=== PATIENT | female | born 1990 | race Caucasian/White ===

== ENCOUNTER 2023-11-17 16:03 | Inpatient (IN) | payer OTHER ==
[~2023-11-17] VITALS: Ht 165.1 cm; Wt 66.1 kg
[2023-11-17] MEDS ORDERED: METH4PACK PO (16:20)
[2023-11-17 22:04] LABS: BASO % 0.2 % (0.0-1.0); EOS # 0.5 10^3/uL (0.0-0.5); EOS % 4.6 % (0.0-3.0); HEMOGLOBIN 12.2 g/dl (12.0-15.5); LYMPH # 0.6 10^3/uL (1.5-5.0); LYMPH % 5.3 % (24.0-44.0); MEAN CORPUSCULAR VOLUME 91.1 fl (80.0-96.0); MONO # 0.5 10^3/uL (0.0-0.8); MONO % 4.4 % (2.0-8.0); NEUTROPHILS % 84.7 % (36.0-66.0); PLATELET COUNT, AUTOMATED 210 10^3/uL (150-450); RED BLOOD COUNT 4.06 10^6/uL (4.00-5.40); WHITE BLOOD COUNT 10.7 10^3/uL (4.0-10.0)
[2023-11-17 22:13] LABS: ERYTHROCYTE SEDIMENTATION RATE 5 mm/hr (0-20)
[2023-11-17 22:15] LABS: INR 1.14; PARTIAL THROMBOPLASTIN TIME 27.4 SECONDS (24.8-34.2); PROTHROMBIN TIME 14.3 SECONDS (12.5-14.5)
[2023-11-17 22:32] LABS: ALBUMIN 3.6 G/DL (3.2-5.2); ALKALINE PHOSPHATASE 46 U/L (46-116); ALT/SGPT 23 U/L (7.0-40); AST/SGOT 13 U/L (<34); BILIRUBIN,DIRECT < 0.1 MG/DL (<0.4); BILIRUBIN,TOTAL 0.2 MG/DL (0.3-1.2); BLOOD UREA NITROGEN 12 MG/DL (9-23); CALCIUM LEVEL 7.9 MG/DL (8.5-10.1); CARBON DIOXIDE LEVEL 24 MMOL/L (20-31); CHLORIDE LEVEL 105 MMOL/L (98-107); CREATININE FOR GFR 1.03 MG/DL (0.55-1.30); GLOMERULAR FILTRATION RATE > 60.0 (>60); GLUCOSE, FASTING 99 MG/DL (60-100); POTASSIUM SERUM 3.4 MMOL/L (3.5-5.1); SODIUM LEVEL 134 MMOL/L (136-145); TOTAL PROTEIN 6.4 G/DL (5.7-8.2)
[2023-11-17] MEDS ORDERED: CYCL5TAB PO (23:18)
[2023-11-17] MEDS ORDERED: JUNE1TAB PO (23:18)
[2023-11-17] MEDS ORDERED: IBUP1TAB7 PO (23:18)
[2023-11-17] MEDS ORDERED: ACET-897 PO (23:18)
[2023-11-17] MEDS ORDERED: HOME MED LIST COMPLETE! XX SCH (23:20)
[2023-11-17] MEDS: ACETAMINOPHEN 325 MG TAB PO ONE (23:22)
[2023-11-17] MEDS: KETOROLAC 30 MG/ML 1ML VIAL IV ONE (23:22)
[2023-11-18] MEDS ORDERED: diphenhydrAMINE 50MG/ML VIAL IV SCH (00:35)
[2023-11-18] MEDS ORDERED: MOM 30ML SUSPENSION UDC PO PRN (00:35)
[2023-11-18] MEDS: NS 1,000 ML IV SCH (01:26)
[2023-11-18] MEDS: CETIRIZINE (ZyrTEC) 10 MG TAB PO SCH (01:26)
[2023-11-18] MEDS: MORPHINE 2 MG/ML 1ML VIAL IV PRN (01:27)
[2023-11-18] MEDS: diphenhydrAMINE 50MG/ML VIAL IV PRN (02:50)
[2023-11-18] MEDS: NS 1,000 ML IV ONE (03:30)
[2023-11-18] MEDS: ANUSOL HC CREAM 30GM TOP PRN (04:33)
[2023-11-18] MEDS: KETOROLAC 30 MG/ML 1ML VIAL IV PRN (07:10)
[2023-11-18] MEDS: ACETAMINOPHEN TAB 650MG DOSE (2X325MG) PO PRN (07:34)
[2023-11-18 08:28] VITALS: BP 115/59; TEMP 100.1; O2SAT 98
[2023-11-19 14:57] LABS: SSA SJOGRENS A <1.0 NEG AI (<1.0 NEG); SSB SJOGRENS B <1.0 NEG AI (<1.0 NEG)
== END 2023-11-18 08:30 | disposition short-term general hospital (02) | DRG 596 ==
LOC: M ED 16:03 → M ED INP 11-18 00:34
PROVIDERS: ADMIT Internal Medicine; ATTEND Internal Medicine
DX: L51.1 Stevens-Johnson syndrome (principal); Z88.2 Allergy status to sulfonamides; Z88.8 Allergy status to other drugs, medicaments and biological substances; T36.8X5A Adverse effect of other systemic antibiotics, initial encounter

== ENCOUNTER 2023-11-28 10:41 | Emergency (ER) | payer OTHER ==
[~2023-11-28] VITALS: Ht 165.1 cm; Wt 65.7 kg
[~2023-11-28 10:41] MED LIST: ACET-897 PO; CYCL5TAB PO; IBUP1TAB7 PO; JUNE1TAB PO; METH4PACK PO
[2023-11-28 11:59] LABS: BASO % 0.4 % (0.0-1.0); EOS % 0.4 % (0.0-3.0); HEMATOCRIT 44.9 % (36.0-47.0); HEMOGLOBIN 14.6 g/dl (12.0-15.5); LYMPH # 1.6 10^3/uL (1.5-5.0); LYMPH % 16.5 % (24.0-44.0); MEAN CORPUSCULAR HEMOGLOBIN 29.6 pg (27.0-33.0); MEAN CORPUSCULAR HGB CONC 32.5 g/dl (32.0-36.5); MEAN CORPUSCULAR VOLUME 90.9 fl (80.0-96.0); MONO # 0.3 10^3/uL (0.0-0.8); MONO % 3.3 % (2.0-8.0); NEUTROPHILS # 7.7 10^3/uL (1.5-8.5); NEUTROPHILS % 78.3 % (36.0-66.0); PLATELET COUNT, AUTOMATED 427 10^3/uL (150-450); RED BLOOD COUNT 4.94 10^6/uL (4.00-5.40); WHITE BLOOD COUNT 9.8 10^3/uL (4.0-10.0)
[2023-11-28 12:16] LABS: BLOOD UREA NITROGEN 13 MG/DL (9-23); CALCIUM LEVEL 9.7 MG/DL (8.5-10.1); CARBON DIOXIDE LEVEL 26 MMOL/L (20-31); CHLORIDE LEVEL 106 MMOL/L (98-107); CREATININE FOR GFR 0.67 MG/DL (0.55-1.30); GLOMERULAR FILTRATION RATE > 60.0 (>60); GLUCOSE, FASTING 109 MG/DL (60-100); POTASSIUM SERUM 4.1 MMOL/L (3.5-5.1); SODIUM LEVEL 138 MMOL/L (136-145)
[2023-11-28 12:50] LABS: ALBUMIN 4.5 G/DL (3.2-5.2); ALKALINE PHOSPHATASE 67 U/L (46-116); ALT/SGPT 106 U/L (7.0-40); AST/SGOT 42 U/L (<34); BILIRUBIN,DIRECT 0.1 MG/DL (<0.4); BILIRUBIN,TOTAL 0.4 MG/DL (0.3-1.2); CK-MB VALUE MASS < 1.0 NG/ML (<3.6); MAGNESIUM LEVEL 2.2 MG/DL (1.8-2.4); PHOSPHORUS LEVEL 1.8 MG/DL (2.5-4.9); TOTAL PROTEIN 8.2 G/DL (5.7-8.2)
[2023-11-28 12:52] LABS: FREE T4 1.43 NG/DL (0.89-1.76); THYROID STIMULATING HORMONE 0.712 uIU/ML (0.55-4.78)
[2023-11-28 12:57] LABS: CPK CREATINE PHOSPHOKINASE 17 U/L (34-145); MB/CK RELATIVE INDEX 5.88 (< OR =4)
[2023-11-28] MEDS ORDERED: ISOVUE-370 76% 100ML VIAL As Ordered ONE (13:10)
[2023-11-28 14:10] LABS: CPK CREATINE PHOSPHOKINASE < 15 U/L (34-145)
[2023-11-28 14:11] LABS: CK-MB VALUE MASS < 1.0 NG/ML (<3.6)
[2023-11-28] MEDS: NEUTRA-PHOS 1.5 GM PACKET PO ONE (14:24)
[2023-11-28 15:30] VITALS: BP 128/68; TEMP 97.7; O2SAT 98
== END 2023-11-28 15:42 | disposition home or self-care (01) ==
LOC: M ED 10:41
DX: R20.2 Paresthesia of skin (principal); Z88.1 Allergy status to other antibiotic agents; Z88.2 Allergy status to sulfonamides; Z88.8 Allergy status to other drugs, medicaments and biological substances
CPT/HCPCS: 36415; 70450; 71045; 75635; 80048; 80076; 82550; 82553; 83605; 83735; 84100; 84439; 84443; 84484; 85025; 85379; 93005; 93041; 93970; 94760; 99285; Q9967

== ENCOUNTER → 2023-12-11 | Outpatient (CLI) | payer OTHER ==
[~2023-12-11] MED LIST changes: +PROHANCE 279.3MG/ML 15ML VIAL ONE
== END ==
LOC: M PLAIMG 08:14
PROVIDERS: ATTEND Nurse Practitioner Family
DX: R93.2 Abnormal findings on diagnostic imaging of liver and biliary tract (principal)
CPT/HCPCS: 74183; A9576

== ENCOUNTER 2024-04-13 11:22 | Emergency (ER) | payer OTHER ==
[~2024-04-13] VITALS: Ht 165.1 cm; Wt 69.3 kg
[~2024-04-13 11:22] MED LIST changes: -CYCL5TAB PO; +CYCL5TAB4 PO; -PROHANCE 279.3MG/ML 15ML VIAL ONE
[2024-04-13 11:24] VITALS: TEMP 97.3
[2024-04-13] MEDS ORDERED: RIZA5TAB52 (11:30)
[2024-04-13] MEDS ORDERED: OMEP40CA5 (11:30)
[2024-04-13] MEDS ORDERED: EPIN0.3I11 (11:30)
[2024-04-13] MEDS ORDERED: BENZ200C70 (11:30)
[2024-04-13] MEDS ORDERED: ONDA-284 (11:30)
[2024-04-13] MEDS ORDERED: OXYB5TAB14 (11:30)
[2024-04-13 12:44] LABS: BASO # 0.1 10^3/uL (0.0-0.2); BASO % 0.3 % (0.0-1.0); EOS # 0.2 10^3/uL (0.0-0.5); EOS % 1.1 % (0.0-3.0); HEMATOCRIT 34.9 % (36.0-47.0); HEMOGLOBIN 11.9 g/dl (12.0-15.5); LYMPH # 2.2 10^3/uL (1.5-5.0); MEAN CORPUSCULAR HEMOGLOBIN 30.3 pg (27.0-33.0); MEAN CORPUSCULAR HGB CONC 34.1 g/dl (32.0-36.5); MEAN CORPUSCULAR VOLUME 88.8 fl (80.0-96.0); MONO # 1.2 10^3/uL (0.0-0.8); MONO % 6.6 % (2.0-8.0); NEUTROPHILS # 14.5 10^3/uL (1.5-8.5); NEUTROPHILS % 79.5 % (36.0-66.0); PLATELET COUNT, AUTOMATED 624 10^3/uL (150-450); RED BLOOD COUNT 3.93 10^6/uL (4.00-5.40); WHITE BLOOD COUNT 18.3 10^3/uL (4.0-10.0)
[2024-04-13 12:54] LABS: LIPASE 26 U/L (12-53)
[2024-04-13 12:56] LABS: ALBUMIN 3.7 G/DL (3.2-5.2); ALKALINE PHOSPHATASE 75 U/L (35-104); ALT/SGPT 9 U/L (7.0-40); AST/SGOT 16 U/L (<34); BILIRUBIN,DIRECT 0.2 MG/DL (<0.4); BILIRUBIN,TOTAL 0.5 MG/DL (0.3-1.2); TOTAL PROTEIN 8.1 G/DL (5.7-8.2)
[2024-04-13 12:57] LABS: HCG, SERUM QUALITATIVE NEGATIVE (NEGATIVE); KETONE, URINE AUTO RFX TRACE mg/dL (NEGATIVE); LEUKOCYTE ESTERASE UR AUTO RFX NEGATIVE (NEGATIVE); MUCUS, URINE RFX SMALL (NEGATIVE); NITRITE, URINE AUTO RFX NEGATIVE (NEGATIVE); RBC, URINE AUTO RFX 1 /HPF (0-3); SQUAM EPITHELIAL CELL UR AURFX 0 /HPF (0-6); WBC, URINE AUTO RFX 2 /HPF (0-3)
[2024-04-13] MEDS ORDERED: ISOVUE-370 76% 100ML VIAL As Ordered ONE (13:17)
[2024-04-13] MEDS: METOCLOPRAMIDE INJ 10MG/2ML VIAL IV ONE (14:04)
[2024-04-13] MEDS: NS (Normal Saline) 0.9% 1,000 ML IV ONE (14:05)
[2024-04-13] MEDS: KETOROLAC 30 MG/ML 1ML VIAL IV ONE (14:05)
[2024-04-13] MEDS: cefTRIAXone SOD 1 GM in DEXTROSE 5% (D5W) ADV/MINI-BAG 50 ML IV ONE (15:13)
[2024-04-13] MEDS ORDERED: ZITH500T PO (15:48)
[2024-04-13] MEDS ORDERED: CEFD1CAP9 PO (15:48)
[2024-04-13] MEDS ORDERED: PROM25TA12 PO (15:48)
[2024-04-13] MEDS: AZITHROMYCIN 250MG TABLET PO ONE (15:49)
[2024-04-13 15:55] VITALS: BP 117/69; O2SAT 96
== END 2024-04-13 16:03 | disposition home or self-care (01) ==
LOC: M ED 11:22
DX: J18.8 Other pneumonia, unspecified organism (principal); Z79.2 Long term (current) use of antibiotics; Z79.83 Long term (current) use of bisphosphonates; Z79.899 Other long term (current) drug therapy; Z88.1 Allergy status to other antibiotic agents; Z88.2 Allergy status to sulfonamides; Z91.030 Bee allergy status
CPT/HCPCS: 74177; 80047; 80076; 81001; 83690; 84703; 85025; 96361; 96365; 96375; 99284; J0696; J1885; J2765; Q9967

== ENCOUNTER → 2024-04-19 | Outpatient (CLI) | payer OTHER ==
[~2024-04-19] MED LIST changes: +BENZ200C70; +CEFD1CAP9 PO; +E-Z-GAS II EFFERVESCENT PACKET (SODIUM BICARB./CITRIC ACID/SIMETHICONE) As Ordered ONE; +E-Z-HD 98% w/w 340GM SUSP BTL As Ordered ONE; +E-Z-PAQUE 96% w/w SUSP 176GM BTL As Ordered ONE; +EPIN0.3I11; +OMEP40CA5; +ONDA-284; +OXYB5TAB14; +PROM25TA12 PO; +RIZA5TAB52; +ZITH500T PO
== END ==
LOC: M RAD 08:52
PROVIDERS: ATTEND Physician Assistant Medical
DX: R10.9 Unspecified abdominal pain (principal); R94.5 Abnormal results of liver function studies; R12 Heartburn